=== PATIENT | male | born 2005 | race African-American/Black ===

== ENCOUNTER 2024-06-27 16:56 | Emergency (ER) | payer MEDICAID ==
[~2024-06-27] VITALS: Ht 180.3 cm; Wt 76.2 kg
[2024-06-27 17:06] VITALS: BP 124/75; TEMP 99.1
[2024-06-27] MEDS ORDERED: SULF1TAB49 PO (18:48)
[2024-06-27] MEDS ORDERED: MUPI22OI30 TOP (18:48)
[2024-06-27] MEDS: sulfamethoxazole/trimethoprim DS (800/160mg) tablet PO ONE (19:17)
[2024-06-27] MEDS: mupirocin 2% ointment 22GM TP ONE (19:19)
[2024-06-27 19:30] VITALS: PULSE 89; RESP 16; O2SAT 98
== END 2024-06-27 20:23 | disposition home or self-care (01) ==
LOC: ER 16:57
DX: L02.413 Cutaneous abscess of right upper limb (principal)
CPT/HCPCS: 99283; A6258; A6446